=== PATIENT | female | born 1980 | race African-American/Black ===

== ENCOUNTER 2025-03-14 08:14 | Outpatient (AMB) | payer OTHER, MEDICAID, SELFPAY ==
--- OUTSIDE RECORDS SUMMARY | 2025-03-14 08:37 | XMS_ITS | Clinical Summary ---
Author Organization [facility] Address [address] [place] [address] Care Team Providers Care Door Paneler Name Role Phone Brionna Hewitt-Al Primary Care Provider [phone] Source Comments PLEASE NOTE, if this patient is a minor, it may be UNLAWFUL to discuss sensitive information that is contained in these records (such as FAMILY PLANNING, MENTAL HEALTH or SUBSTANCE ABUSE) with the minor patient's parent or other person without the patient's specific authorization.[facility] Allergies No known active allergies Medications semaglutide (OZEMPIC) 1 mg/dose (4 mg/3 mL) pen injectorIndicatio ns:Severe obesity (BMI >= 40),BMI 60.0-69.9, adult INJECT 1MG INTO THE SKIN ONCE A WEEK. 3 mL 2 5 Active albuterol HFA (VENTOLIN HFA) 90 mcg/actuation inhalerIndication s:Shortness of breath INHALE 2 PUFFS INTO THE LUNGS EVERY 6 HOURS NEEDED FOR SHORTNESS OF BREATH OR WHEEZING 18 Each 5 Active tirzepatide, weight loss, (ZEPBOUND) 2.5 mg/0.5 mL pnijIndications:E ncounter for weight management Inject 2.5 mg into the skin once a week. 2 mL 2 5 Active lidocaine (LIDODERM) 5 % patchIndications: Cervical radiculopathy Place 1 Patch onto the skin daily Apply 1 patch to the affected area for a maximum of 12 hours, followed by removal for 12 hours.. 30 Patch 5 Active gabapentin (NEURONTIN) 300 mg capsuleIndication s:Cervical radiculopathy Take 1 Capsule by mouth 3 (three) times daily. 45 Capsule 5 Active semaglutide (OZEMPIC) 2 mg/dose (8 mg/3 mL) pen injectorIndicatio ns:Severe obesity,Encounter for weight management Inject 2 mg into the skin once a week. 3 mL 1 5 Active lidocaine (LIDODERM) 5 % patchIndications: Cervical radiculopathy Place 1 Patch onto the skin daily. Apply 1 patch to the affected area for a maximum of 12 hours, followed by removal for 12 hours. 30 Patch 4 025 Discontin ued(Reord er (E-Cancel Not Sent)) gabapentin (NEURONTIN) 300 mg capsuleIndication s:Cervical radiculopathy Take 1 Capsule by mouth 3 (three) times daily 45 Capsule 4 025 Discontin ued(Reord er (E-Cancel Not Sent)) semaglutide (OZEMPIC) 2 mg/dose (8 mg/3 mL) pen injectorIndicatio ns:Severe obesity,Encounter for weight management Inject 2 mg into the skin once a week. 3 mL 1 5 025 Discontin ued(Reord er (E-Cancel Not Sent)) Active Problems Problem Noted Date Diagnosed Date Encounter for weight management 12/11/2024 Overview (12/11/2024): Pt has failed weight loss with ozempic 1mg 12/11/2024: Switch to zepbound, insurance requires starter dose. F/u every 4 months via telemed for rapid titration and every 3 months for weight checks. Severe obesity 04/08/2023 Delivery by section of full-term infant 08/17/2018 Overview (08/17/2018): 02/04/18 at [facility] by Dr. Chairez, [id number], no complications Encounters Date Type Department Care Team Description 12/19/2024 Interim Notes [address] [address] Rayna Montez [place] 12/12/2024 Results Follow-Up [address] [address] Enrico Austin MD from Last 3 Months Immunizations Immunization Administration Dates Next Due Flu, Preservative Free 04/08/2023 INFLUENZA, SEASONAL, INJECTABLE 04/24/2014 TDAP 11/19/2017,04/24/2014,03/29/2009 Td (adult),2 Lf tetanus toxo id (TDVAX), preservative free 07/21/2020 Family History Medical History Relation Name Comments ckd Father Relation Name Status Comments Father Alive Mother Alive Social History Tobacco Use Types Packs/Day Years Used Date Smoking Tobacco: Never Smokeless Tobacco: Never Tobacco Cessation:Counseling Given: Not Answered Alcohol Use Standard Drinks/Week Comments Yes 0 (1 standard drink = 0.6 oz pur e alcohol) soically Social Connections Answer Date Recorded Connectedness 0 02/19/2024 Financial Resource Strain Answer Date R ecorded Financial Resource Strain 0 2022 Stress Answer Date Recorded Stress 0 04/08/2023 Physical Activity Answer Date Recorded Physical Activity 0 04/08/2023 Food Insecurity Answer Date Recorded Food 0 03/09/2024 Transportation Needs Answer Date Record ed Transportation 0 04/08/2023 Housing Stability Answer Date Recorded Housing 0 04/08/2023 Safety and Environment Answer Date Jeremy rded How often does anyone, inclu ding family and friends, physically hurt you? 1 12/11/2024 Utilities Answer Date Recorded Utilities 0 04/08/2023 Employment Answer Date Recorded Stress 0 04/08/2023 Comments No Sex and Gender Information Value Date Recorded Sex Assigned at Female 06/22/2017 6:47 AM PST Legal Sex Female 6:31 AM PST Gender Identity Female 06/22/2017 6:47 AM PST Sexual Orientation Straight 06/22/2017 6: 47 AM PST Occupation Industry Job Start Date Job End Date not working Not on file Not on file Not on file Last Filed Vital Signs Vital Sign Reading Time Taken Comments Blood Pressure 116/80 12/11/2024 9:39 AM EDT Pulse 94 12/11/2024 9:39 AM EDT Temperature 36.1 C (96.9 F) 12/11/2024 9:39 AM EDT Respiratory Rate 17 12/11/2024 9:39 AM EDT Oxygen Saturation 95% 12/11/2024 9:39 AM EDT Inhaled Oxygen Concentration - - Weight 165.4 kg (364 lb 9.6 oz) 12/11/2024 9:39 AM EDT Height 162.6 cm (5' 4 ) 12/11/2024 9:39 AM EDT Body Mass Index 62.58 12/11/2024 9:39 AM EDT Plan of Treatment Upcoming Encounters Date Type Department Care Team (Late st Contact Info) Description 03/22/2025 4:20 PM EDT Office Visit [facility] [address] [place] [address] Rhonda Ya DO [address] [place] [address] Health Maintenance Due Date Last Done Comments HPV Screening 1981 Imm-Hepatitis B (1 of 3 - 19 + 3-dose series) 01/04/2000 Pap Smear 2002 Imm-HPV (1 - 3-dose SCDM series) 01/04/2008 Breast Cancer Screening (Mammogram) 2021 Cervical Cancer Screening 07/20/2022 Pap + HPV 07/20/2022 07/20/2017 (Arianna pang by Outside Provider) [id number] ( season) 2025 04/ 021, 09/03/2020 Imm-Influenza (#1) 2025 04/08/2023, 04/24/2014 Annual Wellness (Adult): Indicated (All Coverage) 12/11/2025 12/11/2024, 04/08/2023 Anxiety Screening 12/11/2025 12/11/2024 Diabetes Screening 12/11/2025 12/11/2024, 0 12/11/2024, 04/08/2023, Additional history exists Hypertension Screening (#1) 12/11/2025 Relationship Safety Screening/Counseling 12/11/2025 12/11/2024, 04/08/2023 Tobacco Screening 12/11/2025 12/11/2024, 04/08/2023 Lipid Screening 12/12/2027 12/11/2024, 04/08/2023 Imm-DTaP/Tdap/Td (5 - Td or Tdap) 07/21/2030 07/21/2020, 11/19/2017, 04/24/2014, Additional history exists HIV Screening Completed 04/08/2023 Hepatitis C Screening Completed 04/08/2023 Alcohol and Drug Screen Completed 12/12/19 25, 03/24/2024, 04/08/2023, Additional history exists Depression Annual Screen Completed 025, 04/08/2023, 06/22/2017 Cervical Ablation/Cold-Knife Conization Discontinued Cervical Cryotherapy Discontinued Colposcopy Discontinued Endometrial Biopsy Discontinued Excision/Leep Discontinued HPV Genotyping Discontinued Vaginal Pap Discontinued Vulvoscopy Discontinued Procedures Procedure Name Priority Date/Time Associated Diagnosis Comments HEMOGLOBIN GLYCOSYLATED A1C Routine 12/11/2024 10:38 AM EDT Routine general medical examination at a health care facility LIPID PANEL Routine 12/11/2024 10:38 AM EDT Routine general medical examination at a [facility] care facility HIV 1/2 AG & AB W/RFLX (4TH GEN) Routine 04/08/2023 4:13 PM EDT Routine general medical examination at a health care facility HEPATITIS C AB W/RFLX HCV RNA, QT, RT PCR Routine 04/08/2023 4:13 PM EDT Routine general medical examination at a health care facility from Last 3 Months or Most Recently Relevant to Health Maintenance Results * (ABNORMAL) HEMOGLOBIN GLYCOSYLATED A1C Routine (12/11/2024 10:38 AM EDT) HEMOGLOBIN A1C 5.9(H) <5.7 % [facility] Comment: For someone without known diabetes, a hemoglobin A1c value between 5.7% and 6.4% is consistent with prediabetes and should be confirmed with a follow-up test. For someone with known diabetes, a value <7% indicates that their diabetes is well controlled. A1c targets should be individualized based on duration of diabetes, age, comorbid conditions, and other considerations. This assay result is consistent with an increased risk of diabetes. Currently, no consensus exists regarding use of hemoglobin A1c for diagnosis of diabetes for children. Blood Blood / Unknown 12/11/2024 1 0:38 AM EDT 12/11/2024 10:39 AM EDT us Enrico Austin MD LAB - BLOOD DRAW Edited Result - Final Performing Organization Address [facility] Co de Phone Number [facility] [address] [address], [facility] [address] [address] * LIPID PANEL Routine (12/11/2024 10:38 AM EDT) [facility] Signature CHOLESTEROL, TOTAL 159 <200 mg/dL [facility] HDL CHOLESTEROL 56 > OR = 50 mg/dL [facility] TRIGLYCERIDES 61 <150 mg/dL [facility] LDL-CHOLESTEROL 88 99 mg/dL (calc) [facility] Comment: Reference range: <100 Desirable range <100 mg/dL for primary prevention; <70 mg/dL for patients with CHD or diabetic patients with > or = 2 CHD risk factors. LDL-C is now calculated using the Igor-Bladimir calculation, which is a validated novel method providing better accuracy than the Friedewald equation in the estimation of LDL-C. Igor SS et al. PEPPER. 2013;310(19): 4550-6412 (http://education.AltaSens/faq/ZNZ231) CHOL/HDLC RATIO 2.8 <5.0 (calc) [facility] NON-HDL CHOLESTEROL 103 <130 mg/dL (calc) [facility] Comment: For patients with diabetes plus 1 major ASCVD risk factor, treating to a non-HDL-C goal of <100 mg/dL (LDL-C of <70 mg/dL) is considered a therapeutic option. Blood Blood / Unknown 12/11/2024 1 0:38 AM EDT 12/11/2024 10:39 AM EDT us Enrico Austin MD LAB - BLOOD DRAW Final Result Performing Organization Address [facility] de Phone Number [facility] [address] [address], [facility] [address] [place] [address] * Hep C Antibody with Reflex HCV RNA (04/08/2023 4:13 PM EDT) HEPATITIS C ANTIBODY NON-REACT ADAM NON-REACT ADAM [facility] Comment: HCV antibody was non-reactive. There is no laboratory evidence of HCV infection. In most cases, no further action is required. However, if recent HCV exposure is suspected, a test for HCV RNA (test code 11595) is suggested. For additional information please refer to http://[employer].iPowow/faq/WOB87d8 (This link is being provided for informational/ educational purposes only.) Blood Blood / Unknown 04/08/2023 4 :13 PM EDT 04/08/2023 4:13 PM EDT Brionna Hewitt GRINDER SET UP OPERATOR-C LAB - BLOOD DRAW Edited R esult - Final [employer] [facility] [address] [address], [facility] [address] [place] [address] * HIV 1/2 AG & AB W/RFLX (4TH GEN) (04/08/2023 4:13 PM EDT) Pathologist [facility] HIV AG/AB, 4TH GEN NON-REAC TIVE NON-REAC TIVE [facility] Comment: HIV-1 antigen and HIV-1/HIV-2 antibodies were not detected. There is no laboratory evidence of HIV infection. PLEASE NOTE: This information has been disclosed to you from records whose confidentiality may be protected by state law. If your state requires such protection, then the state law prohibits you from making any further disclosure of the information without the specific written consent of the person to whom it pertains, or as otherwise permitted by law. A general authorization for the release of medical or other information is NOT sufficient for this purpose. For additional information please refer to http://[employer].iPowow/faq/ZTH065 (This link is being provided for informational/ educational purposes only.) The performance of this assay has not been clinically validated in patients less than 2 years old. Blood Blood / Unknown 04/08/2023 4 :13 PM EDT 04/08/2023 4:13 PM EDT us Brionna PEREZP-Al LAB - BLOOD DRAW Final Re sult [facility] [employer] [address] [address], [facility] [address] [place] [address] from Last 3 Months or Most Recently Relevant to Health Maintenance Insurance [place] [employer] [place] Member Subscriber Plan / Payer (Ef fective 2024-Present) Name:Adriana Mitchell Relation to Subscriber:Self Name:Adriana Mitchell Payer ID:[id number] Type:Indemnity Address: [address] [address] [place] [address] Care Teams Door Paneler Relationship Specialty Start Date End Date Brionna Hewitt FNP-C [address] [place] [address] PCP - General Internal Medicine 01/26/23
--- OUTSIDE RECORDS SUMMARY | 2025-03-14 08:37 | XMS_ITS | Clinical Summary ---
Author Organization [facility] Address [address] [place] [address] Phone Care Team Providers Care Deputy County Counsel Name Role Phone Brionna Hewitt CRISTIN Primary Care Provider Encounters Date Type Department Care Team Description 12/27/2024 7:19 AM EDT - 12/27/2024 11:59 PM EDT [facility] [address] [place] [address] Encounter for screening mammogram for malignant neoplasm of breast Discharge Disposition: Home or Self Care from Last 3 Months Surgical History Surgery Date Site/Laterality Comments OTHER SURGICAL HISTORY PROCEDURE: DENIES PREVIOUS SURGERY Family History Medical History Relation Name Comments Breast cancer Father's Sister 1 Breast cancer Father's Sister 2 Breast cancer Father's Sister 3 Breast cancer Maternal Grandmother Relation Name Status Comments Father Alive HEALTHY Father's Sister 1 Alive Father's Sister 2 Alive Father's Sister 3 Alive Maternal Grandmother Mother Alive HEALTHY Social History Tobacco Use Types Packs/Day Years Used Date Smoking Tobacco: Never Alcohol Use Standard Drinks/Week Comments Yes 0 (1 standard drink = 0.6 oz pur e alcohol) Comments No Sex and Gender Information Value Date Recorded Sex Assigned at Female 12/12/2024 8:41 AM EDT Legal Sex Female 7:48 AM EST Gender Identity Female 12/12/2024 8:41 AM EDT Sexual Orientation Straight 12/12/2024 8: 41 AM EDT Obstetrics History Para Term AB IAB SAB Ectopic Multiple Livin g Live Births 2 Plan of Treatment Health Maintenance Due Date Last Done Comments Hepatitis B Vaccines (1 of 3 - 19+ 3-dose series) 01/04/2000 Cervical Cancer Screening: Pap Smear 2002 HPV Vaccines (1 - 3-dose SCDM series) 01/04/2008 Depression Screening 06/14/2024 HIV Screening 12/12/2024 Social Influencers of Health Screening 12/12/2024 COVID-19 Vaccine (3 - 2024- season) 2025 10/01/2020, 09/03/2020 Influenza Vaccine (#1) 2025 04/08/2023, 2013 Breast Cancer Screening 12/27/2026 12/27/2024 Cholesterol Screening (Lipid Panel) 12/11/2029 12/11/2024, 12/11/2024, 04/08/2023 DTaP,Tdap,and Td Vaccines (5 - Td or Tdap) 07/21/2030 07/21/2020, 11/19/2017, 04/24/2014, Additional history exists RSV Immunization Adult Patients (1 - 1-dose 75+ series) 01/04/2056 Hepatitis C Screening Completed 04/08/2023 HIB Vaccines Aged Out No longer eligi ble based on patient's age to complete this topic Hepatitis A Vaccines Aged Out No long er eligible based on patient's age to complete this topic IPV Vaccines Aged Out No longer eligi ble based on patient's age to complete this topic MMR Vaccines Aged Out No longer eligi ble based on patient's age to complete this topic Meningococcal ACWY Vaccine Aged Out N o longer eligible based on patient's age to complete this topic Meningococcal B Vaccine Aged Out No l onger eligible based on patient's age to complete this topic Pneumococcal Vaccine: Pediatrics (0 to 5 Years) and At-Risk Patients (6 to 49 Years) Aged Out No longer eligible based on patient's age to complete this topic RSV Immunization Patients Under 20 months Aged Out No longer eligible based on patient's age to complete this topic Varicella Vaccines Aged Out No longer eligible based on patient's age to complete this topic Procedures Procedure Name Priority Date/Time Associated Diagnosis Comments MG MAMMO DIGITAL SCREENING W ZEB BILAT Routine 12/27/2024 7:37 AM EDT Encounter for screening mammogram for malignant neoplasm of breast from Last 3 Months Results * (ABNORMAL) MG Mammo Digital Screening w Zeb bilat (12/27/2024 7:37 AM EDT) Anatomical Region Laterality Modality Breast Bilateral Mammography 12/27/2024 3:33 PM EDT Addenda Addendum by Anjel Lyons MD on 12/28/2024 9:08 AM EDT Addendum: The technologist who performed the exam does recollect that the patient does have skin lesions. Therefore, the patient can be managed on the basis of the clinical breast exam. -------- ADDENDUM -------- Dictated By: Anjel Lyons Dictated Date: 12/28/2024 09:07 ET Assigned Physician: Anjel Lyons Reviewed and Electronically Signed By: Anjel Lyons Signed Date: 12/28/2024 09:08 ET Workstation ID: [id number] Transcribed By: Self Edit Transcribed Date: 12/28/2024 09:07 ET Impressions 12/27/2024 3:46 PM EDT There is a probable abnormality in the skin in the 12 o'clock position 9 cm from the right nipple. Recommend direct inspection and clinical breast exam. If there is no suspicious finding on clinical breast exam, then diagnostic right mammography and targeted right breast ultrasound would be warranted. ASSESSMENT: BI-RADS 0: INCOMPLETE - need additional imaging evaluation and/or prior mammograms for comparison RECOMMENDATION(S): 1: Clinical correlation recommended RIGHT If there is no correlate on clinical breast exam in the 12 o'clock position 9 cm from the right nipple, then diagnostic imaging would be warranted [facility] [address], [address] -------- FINAL REPORT -------- Dictated By: Anjel Lyons Dictated Date: 12/27/2024 15:33 ET Assigned Physician: Anjel Lyons Reviewed and Electronically Signed By: Anjel Lyons Signed Date: 12/27/2024 15:46 ET Workstation ID: [id number] Transcribed By: Self Edit Transcribed Date: 12/27/2024 15:33 ET Narrative 12/27/2024 3:46 PM EDT EXAM: SCREENING MAMMOGRAPHY, BILATERAL HISTORY: SCREENING. Family history of breast cancer-maternal grandmother, paternal aunt, paternal aunt, paternal aunt. COMPARISON: 08/01/21, 07/28/21 TECHNIQUE: Synthesized CC and MLO projections of each breast. Tomosynthesis of each breast in the CC and MLO projections. ADDITIONAL IMAGING: None Computer-aided detection was employed with the [employer] Pro[employer] AI 3-D. TISSUE DENSITY: There are scattered areas of fibroglandular density. (BI-RADS category B) FINDINGS: RIGHT BREAST: There is a 1.2 cm mass likely involving the skin in the 12 o'clock position 9 cm from the nipple. No additional suspicious right breast findings LEFT BREAST: No suspicious mass. No suspicious calcification. No distortion. No additional suspicious left breast findings Procedure Note Anjel Lyons MD - 12/27/2024 EXAM: SCREENING MAMMOGRAPHY, BILATERAL HISTORY: SCREENING. Family history of breast cancer-maternalgrandmother, paternal aunt, paternal aunt, paternal aunt. COMPARISON: 08/01/21, 07/28/21 TECHNIQUE: Synthesized CC and MLO projections of each breast.Tomosynthesis of each breast in the CC and MLO projections. ADDITIONAL IMAGING: None Computer-aided detection was employed with the [employer]Cast ProFound AI 3-D. TISSUE DENSITY: There are scattered areas of fibroglandular density.(BI-RADS category B) FINDINGS: RIGHT BREAST: There is a 1.2 cm mass likely involving the skin in the 12 o'clockposition 9 cm from the nipple. No additional suspicious right breastfindings LEFT BREAST: No suspicious mass. No suspicious calcification. No distortion. Noadditional suspicious left breast findings IMPRESSION: There is a probable abnormality in the skin in the 12 o'clock position 9cm from the right nipple. Recommend direct inspection and clinical breast exam. If there is no suspicious finding on clinical breast exam, then diagnosticright mammography and targeted right breast ultrasound would be warranted. ASSESSMENT: BI-RADS 0: INCOMPLETE - need additional imaging evaluation and/or priormammograms for comparison RECOMMENDATION(S): 1: Clinical correlation recommended RIGHT If there is no correlate on clinical breast exam in the 12 o'clockposition 9 cm from the right nipple, then diagnostic imaging would bewarranted [facility]ammography location: [facility] [address] [place], [address] -------- FINAL REPORT -------- Dictated By: Anjel Lyons Dictated Date: 12/27/2024 15:33 ET Assigned Physician: Anjel Lyons Reviewed and Electronically Signed By: Anjel Lyons Signed Date: 12/27/2024 15:46 ET Workstation ID: [id number] Transcribed By: Self Edit Transcribed Date: 12/27/2024 15:33 ET Enrico Austin MD IMG BI PROCEDURES Edited Result - Final from Last 3 Months Insurance MEDICAID - [place] [employer] [facility] [place] [address] Care Teams Deputy County Counsel Relationship Specialty Start Date End Date Brionna Hewitt FNP [address] [place] [address] PCP - General Family Medicine 12/12/24
--- NOTE | 2025-03-14 12:52 | MHC.OFFVISWM ---
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 [facility] BMI 60 Allergies No Known Allergies Allergy (Verified 03/14/25 12:52) Medication List - Last Reconciled 03/14/25 by Silvino Amado MD albuterol sulfate 90 mcg/actuation (Ventolin HFA) 2 puffs inhalation Q6H PRN gabapentin 400 mg PO .PRN [IRON PO DAILY] omeprazole 20 mg PO DAILY HPI HPI [employer] URANI[employer] PROCESSING [facility] vs [facility] BMI 60: Details: Start time: 12.49pm, End time: 1.34pm ?I spent 40 minutes speaking with the patient on the phone plus an additional 5 minutes reviewing and updating records for a total of 45 minutes HPI Comments Details: Previous weight loss efforts: Phentermine for 7 months: 40lbs Wakes up: 6am, Sleeps: 9pm Breakfast: skips Lunch: 1pm (take out) Dinner: 6-7pm (Pasta, chicken, vegetables, rice, potatoes) Snacks: 10am (cookie, fruits), occ 3-4pm (same as am) Exercise: stationary bike (no calorie tracking) Beverages: Coffee (1 cup/d with cream and sugar), Tea: none, Soda: none, Juice: rarely, ETOH: 2/month PFSH Medical History (Updated 03/14/25 @ 13:16 by Silvino Amado MD) Morbid obesity Neck pain Asthma GERD (gastroesophageal reflux disease) BMI 35.0-35.9,adult Obesity Surgical History (Updated 03/09/25 @ 11:24 by Adriana Lomeli CMA) Hx of section Family History (Updated 03/09/25 @ 09:23 by Adriana Lomeli CMA) Mother No problems noted. Father Kidney problem Son No problems noted. Daughter No problems noted. Social History (Updated 03/09/25 @ 09:23 by Adriana Lomeli CMA) Alcohol intake: current Alcohol intake frequency: holidays/special occasions only Patient Tobacco Use Status: Never used Tobacco Telehealth Telehealth Telehealth Platform: Telephone Location of provider rendering services: practice address Location of patient: address on file Patient Identification confirmed using: Name, : Yes Telehealth method: voice only Patient verbally consented to treatment: Yes Patient verbally consented to billing insurance company: Yes Patient informed of any privacy concerns related to visit: Yes Minutes spent on Phone/Video with Pt.: 45 Assessment & Plan Assessment & Plan (1) Morbid obesity: Code(s): E66.01 - Morbid (severe) obesity due to excess calories Category: Medical Plan: 1.? Plan for lap sleeve gastrectomy. If diaphragmatic or ventral hernias are present at time of surgery, these will be repaired laparoscopically as well. I emphasized the importance of close follow-up, adherence to instructions and good communication. The surgery does not replace the need to change your lifestlyle which is the cause of the obesity problem. The surgery provides the motivation to try again to change your lifestyle, it reduces the appetite and make the transition to a better lifestyle easier and doubles the amount of weight you would lose compared to doing the lifestyle change without the surgery. You will need to be on a liquid diet with protein shakes for 2 weeks before surgery to maximize weight loss and boost your nutritional status to recover better from surgery and also for the first two weeks after surgery to let the stomach heal before we introduce other foods. After the first 2 weeks we will introduce protein bars and soft foods like scrambled eggs, cottage cheese and yogurt and after the 6th week will introduce meat, fish and cooked vegetables in small amounts. Over time you should be able to eat everything in small amounts. Side effects like nausea, vomiting, heartburn or abdominal pain are not common in the practice unless you are not following in the practice. This operation requires lifetime commitment to following in our practice and communication with me. You will much less weight and experience side effects if you don?t communicate or not following in the practice. Complications are rare and in our practice is about 1/10 of the national average. However, you can develop bleeding that may require transfusion (hasn?t happened for year in the practice), you may from complications (we did not have any deaths in the practice) and infections. Infections are usually a result of breakdown in communication or not understanding or following directions correctly. They are difficult to treat, they can happen during the first 6 weeks, they may require to be in the hospital for weeks or even months, not being able to eat by mouth and you may have drains and surgeries to try and correct the issue. Other risks and complications include possible conversion to an open procedure, leaks, small bowel obstruction, blood clots, cardiac, or pulmonary complications, as rodent exterminator complications such as ulcers, insufficient weight loss and vitamin deficiencies. 1.?Nutritional counseling. Start with one premade PREMIER protein (buy at [employer] or [employer]) shake (8oz of Premier and NOT the whole bottle) at 7am-9am, one protein bar (Fit Crunch protein bar, buy at [employer], or [employer]) at 10am-12pm, another premade PREMIER protein shake (8oz of Premier and NOT the whole milk) at 1pm-3pm, another [employer] protein bar at 4pm-6pm,? dinner at 7pm (12 forks of protein and 12 forks of salad/vegetables). So you do 2 protein shakes, 2 protein bars and one meal per day. Meal to include lean meat (beef, fish, pork, turkey, chicken), or urdu yogurt, or egg whites, or beans with a salad with olive oil and fruits (berries, pears, apples, kiwi). Avoid salt, breads, potatoes, rice, pasta, desserts. 3. Each shake would be drunk slowly, like coffee in a period of 2 hours. 4. Cut each bar in 4 pieces and eat each piece in 30min ?to make each bar last 2 hours. 5. I emphasized the importance of measuring accurately the food portion and measure it when serving the food in plate 6. The meal portions include 12 full-size forks of meat and 12 full-size forks of salad. You always eat the meat portion but you can replace up to 6 forks for salad/vegetables with rice, potatoes or pasta, or a fruit ?if you like. The less you do it the better weight loss will be. 7. One full-size fork is what it can be scooped on the fork without falling aside and not what can be bit with the fork. Use regular forks like those you find in a typical restaurant. 8.? Please buy the body composition scale we discussed and send me weight measurements as soon as possible and then once a week. Always include your diet and exercise plan. 9. Start treadmill with an incline of 2.0 and speed of 3.0. Increase incline by 1 every 3 min to a max incline of 8.0, stay 3min at 8.0 and then return to 2.0 and repeat same steps until calorie goal is met. Goal is to burn 2000 calories per week on exercise, which means either 300 calories daily, or 400 calories 5 days per week, or 500 calories 4 days per week. 10. The best choice would be to purchase a stationary bike, elliptical or treadmill at home that can track calories. Let me know if you do so I can give you an exercise plan. 11.?It is important of avoiding and for at least 18 months postoperatively and has been discussed at the infosession. 12. Goal is to lose at least 1.5-2lbs per week 13. Goal to lose 10% of your weight before surgery, which is about 36lbs. Ultimate weight goal: 324lbs before surgery 14. Please follow the diet plan exactly without any change. If you don't like something about the plan or you feel hungry you need to communicate with me so I can help you revise the plan. You should not change the plan yourself 15. To be scheduled for EGD to assess the stomach's anatomy. The possibility of biopsies was discussed. Patient needs to avoid use of NSAIDs and aspirin for 1 week prior to EGD. You must be on liquids only the day before your endoscopy. Risks of perforation and bleeding was discussed with the patient. This will be an outpatient procedure with IV sedation.
[2025-03-14 12:58] VITALS: BMI 60.0
== END 2025-03-14 13:35 | disposition home or self-care (01) ==
LOC: HO.HBS 08:14
PROVIDERS: PCP Dentist General Practice; Visit Provider Surgery
DX: E66.01 Morbid (severe) obesity due to excess calories (principal); Z68.44 Body mass index [BMI] 60.0-69.9, adult
CPT/HCPCS: 99204